=== PATIENT | female | born 1940 | race Caucasian/White ===

== ENCOUNTER → 2021-10-16 | Day surgery (SDC) | payer MEDICARE ==
[~2021-10-16] MED LIST: COZAAR 25MG TAB25 MG PO; FAMOTIDINE40 MG PO; LEVOTHYROXINE88 MCG PO; LEXAPRO10 MG PO; NEXIUM40 MG PO; PEPCID20 MG PO; SIMVASTATIN10 MG PO; TRIAMTERENE-HC1 EAC4 PO; XYZAL5 MG PO
== END | disposition home or self-care (01) ==
LOC: OR 07:30
DX: K31.9 Disease of stomach and duodenum, unspecified (principal); K29.50 Unspecified chronic gastritis without bleeding; K31.7 Polyp of stomach and duodenum; Q27.39 Arteriovenous malformation, other site; E66.01 Morbid (severe) obesity due to excess calories; I10 Essential (primary) hypertension; E11.9 Type 2 diabetes mellitus without complications; K21.9 Gastro-esophageal reflux disease without esophagitis; Z80.0 Family history of malignant neoplasm of digestive organs; Z88.2 Allergy status to sulfonamides
CPT/HCPCS: J2704; J7040